=== PATIENT | male | born 1985 | race Two or more races ===

== ENCOUNTER 2024-11-28 10:44 | Emergency (ER) | payer BC, SELFPAY ==
--- NOTE | ~2024-11-28 | XR_ITS ---
CHEST RADIOGRAPH, PA AND LATERAL CLINICAL HISTORY: syncope X YESTERDAY . COMPARISON: None available TECHNIQUE: PA and lateral views of the chest. FINDINGS The cardiomediastinal silhouette is unremarkable. The lungs are clear. IMPRESSION: No focal infiltrate or effusion. Reviewed, dictated and finalized at location A.
--- OUTSIDE RECORDS SUMMARY | 2024-11-28 10:46 | XMS_ITS | Clinical Summary ---
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
--- NOTE | 2024-11-28 10:48 | ECG_ITS ---
Test Date: 2024-11-28 10:56:42 Measurements Intervals [place] Rate: 72 P: 42 NC: 184 QRS: 37 QRSD: 86 T: 35 QT: 356 QTc: 391 Interpretive Statements SINUS RHYTHM WITH SINUS ARRHYTHMIA WARNING: DATA QUALITY MAY AFFECT INTERPRETATION No previous ECG available for comparison Electronically Signed On 11-28-2024 14:09:37 CDT by Kevin Ayala M.D.
[2024-11-28 10:49] VITALS: BP 138/102; PULSE 91; RESP 13; TEMP 36.4; O2SAT 100
[2024-11-28 10:59] VITALS: BP 134/98; PULSE 80; RESP 18; TEMP 36.7; O2SAT 98; O2SAT 99
--- OUTSIDE RECORDS SUMMARY | 2024-11-28 11:08 | XMS_ITS | Clinical Summary ---
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
[2024-11-28 11:09] LABS: Hematocrit 43.5 % (42.0-52.0); Hemoglobin 14.8 g/dL (14.0-18.0); Immature Granulocyte Percent A 0.2 % (0-0.5); Lymphocytes Absolute Auto 2.27 K/mm3 (0.9-3.2); Mean Corpuscular HGB Conc 34.0 g/dl (32-36); Mean Corpuscular Hemoglobin 29.5 pg (26-34); Mean Corpuscular Volume 86.8 fl (80-100); Nucleated Red Blood Cells Absolute Auto 0.000 K/mm3 (0.0-0.012); Nucleated Red Blood Cells Perc 0.0 % (0.0-0.2); Platelet Count Result 194 k/mm3 (150-375); Red Blood Count 5.01 M/mm3 (4.6-6.20); White Blood Count 6.5 K/mm3 (4.5-10.0)
[2024-11-28 11:19] LABS: Alanine Aminotransferase 29 U/L (6-50); Albumin Level 4.4 g/dL (3.5-5.1); Alkaline Phosphatase 72 U/L (38-126); Anion Gap 12 mmol/L (4-12); Aspartate Amino Transferase 37 U/L (17-59); Bilirubin,Total 0.6 mg/dL (0.2-1.3); Blood Urea Nitrogen 15 mg/dL (9-20); Calcium 9.2 mg/dL (8.4-10.2); Carbon Dioxide 24 mmol/L (22-30); Chloride 101 mmol/L (98-107); Estimated CRCL calculation 80 ml/min; Estimated Glomerular Filt Rate > 60; Glucose 123 mg/dL (65-110); Potassium 4.0 mmol/L (3.4-5.0); Sodium 137 mmol/L (137-145); Total Protein 8.0 g/dL (6.3-8.2)
[2024-11-28] MEDS: SODIUM CHLORIDE 0.9% IV 1,000 ML 999 ML IV CONT (11:24)
[2024-11-28 11:31] LABS: Add Urine Microscopic? NO; Appearance Urine Clear (Clear); Glucose Urine UA Negative (Negative); Leukocyte Esterase Ur Negative LEU/UL (Negative); Nitrate Urine Negative (Negative); Specific Grav Ur 1.003 (1.001-1.035)
[2024-11-28 11:34] LABS: Magnesium 2.2 mg/dL (1.6-2.3)
[2024-11-28 11:46] LABS: Troponin I < 0.012 ng/mL (0.000-0.034)
--- NOTE | 2024-11-28 12:28 | ED.GENADULT ---
HPI - General Adult General Chief complaint: Syncope Stated complaint: syncopal episode yesterday Time Seen by Provider: 11/28/24 10:55 History of Present Illness HPI narrative: Patient is a 39-year-old gentleman presents emergency department with chief complaint of syncope. Patient reports that last night he was sitting at a table and and eating the patient states he had about a 32nd episode of syncope the patient did report that he became diaphoretic prior to the episode the patient denies chest pain denies shortness of breath reports that he did a lot of activities yesterday and feels though he may be dehydrated. Related Data Home Medications ?Medication ?Instructions ?Recorded ?Confirmed ?Last Taken ?Type ibuprofen 200 mg tablet 200 mg PO Q6H PRN 12/07/22 Unknown History Allergies Allergy/AdvReac Type Severity Reaction Status Date / Time No Known Allergies Allergy Verified 11/28/24 10:58 Review of Systems Review of Systems: A 10 system review of systems was completed on the patient and is negative except for what is stated in the HPI. Nursing and ancillary documentation was reviewed. PMFSH Family History Family History Father Hypertension Social History Social History Smoking status: Never smoker Second hand tobacco smoke exposure: Yes Alcohol intake: former Alcohol use details: Social Substance use type: does not use Exam Narrative: GENERAL: Well-appearing, well-nourished, and in no acute distress. HEAD: Normocephalic, atraumatic. EYES: PERRLA and EOMI. ENT: Nares clear, no rhinorrhea or epistaxis. Mucous membranes moist. NECK: Supple. CHEST: Clear to auscultation. No respiratory distress. HEART: Regular rate and rhythm. No murmur heard. Normal peripheral pulses. ABDOMEN: Soft, nontender, nondistended, normal active bowel sounds. EXTREMITIES: Normal range of motion. No edema. SKIN: Warm, dry, no rash. NEURO: No focal deficits. Alert and oriented x3. PSYCH: Normal mood and affect. Course Vital Signs Vital signs: Vital Signs Temperature 36.4 C 11/28/24 10:49 Pulse Rate 91 11/28/24 10:49 Respiratory Rate 13 11/28/24 10:49 Blood Pressure 138/102 H 11/28/24 10:49 Pulse Oximetry 100 11/28/24 10:49 Oxygen Delivery Room Air 11/28/24 10:49 Temperature 36.7 C 11/28/24 10:59 Pulse Rate 80 11/28/24 10:59 Respiratory Rate 18 11/28/24 10:59 Blood Pressure 134/98 H 11/28/24 10:59 Pulse Oximetry 98 11/28/24 10:59 Oxygen Delivery Room Air 11/28/24 10:59 Medical Decision Making [facility] Narrative Medical decision making narrative: Differential diagnosis includes vasovagal syncope, dysrhythmia, electrolyte abnormality, dehydration, EKG showed no acute ischemic changes and no dysrhythmia. Chest x-ray showed no focal findings urinalysis showed no acute abnormality electrolytes are within normal limits with exception of a glucose of 123 magnesium was 2.2 potassium was 4.0 and creatinine was 1.12 CBC was within normal limits The patient was given a L of normal saline in the emergency department and plan will be to discharge the patient home to follow-up with his primary care provider Vital Signs Vital Signs: Vital Signs Temperature 36.4 C 11/28/24 10:49 Pulse Rate 91 11/28/24 10:49 Respiratory Rate 13 11/28/24 10:49 Blood Pressure 138/102 H 11/28/24 10:49 Pulse Oximetry 100 11/28/24 10:49 Oxygen Delivery Room Air 11/28/24 10:49 Temperature 36.7 C 11/28/24 10:59 Pulse Rate 80 11/28/24 10:59 Respiratory Rate 18 11/28/24 10:59 Blood Pressure 134/98 H 11/28/24 10:59 Pulse Oximetry 98 11/28/24 10:59 Oxygen Delivery Room Air 11/28/24 10:59 Lab Data 11/28/24 11:04 11/28/24 11:04 Labs: Lab Results 11/28/24 11/28/24 Range/Units 11:04 11:26 WBC 6.5 (4.5-10.0) K/mm3 RBC 5.01 (4.6-6.20) M/mm3 Hgb 14.8 (14.0-18.0) g/dL Hct 43.5 (42.0-52.0) % MCV 86.8 (80-100) fl MCH 29.5 (26-34) pg MCHC 34.0 (32-36) g/dl RDW 12.7 (11.5-14.5) % Plt Count 194 (150-375) k/mm3 MPV 10.7 H (7.4-10.4) fl Immature Gran % (Auto) 0.2 (0-0.5) % Neut % (Auto) 54.2 (45.5-73.1) % Lymph % (Auto) 35.0 (18.3-44.2) % Cass[place] % (Auto) 8.8 H (2.6-8.5) % Eos % (Auto) 1.5 (0-4.4) % Baso % (Auto) 0.3 (0.2-1.2) % Lymph # (Auto) 2.27 (0.9-3.2) K/mm3 [place] # (Auto) 0.6 (0.1-0.6) K/mm3 Eos # (Auto) 0.1 (0-0.3) K/mm3 Baso # (Auto) 0.0 (0.0-0.1) K/mm3 Abs Immat Gran (auto) 0.01 (0.00-0.031) K/mm3 Absolute Neuts (auto) 3.5 (1.3-6.7) K/mm3 Absolute Nucleated RBC 0.000 (0.0-0.012) K/mm3 Nucleated RBC % 0.0 (0.0-0.2) % Sodium 137 (137-145) mmol/L Potassium 4.0 (3.4-5.0) mmol/L Chloride 101 (98-107) mmol/L Carbon Dioxide 24 (22-30) mmol/L Anion Gap 12 (4-12) mmol/L BUN 15 (9-20) mg/dL Creatinine 1.12 (0.7-1.3) mg/dL Estim Creat Clear Calc 80 ml/min Estimated GFR > 60 (59 - ) Glucose 123 H (65-110) mg/dL Calcium 9.2 (8.4-10.2) mg/dL Magnesium 2.2 (1.6-2.3) mg/dL Total Bilirubin 0.6 (0.2-1.3) mg/dL AST 37 (17-59) U/L ALT 29 (6-50) U/L Alkaline Phosphatase 72 (38-126) U/L Troponin I < 0.012 (0.000-0.034) ng/mL Total Protein 8.0 (6.3-8.2) g/dL Albumin 4.4 (3.5-5.1) g/dL Urine Color Yellow (Yellow) Urine Appearance Clear (Clear) Urine pH 6.0 (5.0-9.0) Ur Specific [place] 1.003 (1.001-1.035) Urine Protein Negative (Negative) mg/dL Urine Glucose (UA) Negative (Negative) mg/dL Urine Ketones Negative (Negative) mg/dL Ur Blood (Man) Negative (Negative) Urine Nitrate Negative (Negative) Urine Bilirubin Negative (Negative) Urine Urobilinogen 0.2 (<2.0) mg/dL Leukocyte Esterase Rfl Negative (Negative) DON/UL Discharge Plan Discharge Clinical Impression: Syncope Patient Disposition: Home Condition: Stable Instructions: Antibiotic Form, Syncope (ED) Patient Language: Lithuanian Prescriptions: No Action ibuprofen 200 mg tablet 200 mg PO Q6H PRN rizatriptan [Maxalt] 10 mg tablet See Rx Instructions PO .COMPLEX Qty: 30 3RF Rx Instructions: take 1 tab at onset of headache; if no relief may repeat 1 tab after at least 2 hrs; max = 3 tabs/24 hr PO cholecalciferol (vitamin D3) 1,250 mcg (50,000 unit) tablet 1,250 mcg PO WEEKLY Qty: 14 1RF Follow-up/Referrals: Shaw Sanchez MD [Primary Care Provider] - Time of Disposition: 12:32
[2024-11-28 13:29] VITALS: BP 128/72; PULSE 72; RESP 14; O2SAT 99
== END 2024-11-28 13:36 | disposition home or self-care (01) ==
PROVIDERS: Emergency Medicine; Emergency Provider Emergency Medicine; PCP Family Medicine
DX: R55 Syncope and collapse (principal); Z77.22 Contact with and (suspected) exposure to environmental tobacco smoke (acute) (chronic)
CPT/HCPCS: 36415; 71046; 80053; 81003; 83735; 84484; 85025; 93005; 96360; 99284; J7030